=== PATIENT | male | born 1975 | race Caucasian/White ===

== ENCOUNTER 2016-09-02 11:01 | Observation (INO) | payer SELFPAY ==
[~2016-09-02] VITALS: Ht 175.3 cm; Wt 97.0 kg
[2016-09-02] VITALS (12 sets, daily range): BP systolic 119–150; BP diastolic 78–101; PULSE 84–105; RESP 18–22; TEMP 97.8; O2SAT 92–100
[2016-09-02] MEDS ORDERED: SODIUM CHLORID 0.9% 500 ML INJ 500 ML IV ONE ×2 (11:15→14:15)
[2016-09-02] MEDS ORDERED: ASPIRIN 81 MG CHEW TAB PO ONE (11:15)
[2016-09-02] MEDS ORDERED: SODIUM CHLORIDE 0.9% FLUSH 5 ML FLUSH IVF PRN ×2 (11:15→14:00)
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
[2016-09-02] MEDS: NITROGLYCERIN 0.4 MG SL 25 TABS/BTL SL SCH ×2 (11:24→11:34)
[2016-09-02 11:49] LABS: AUTOMATED NEUTROPHIL # 2.3 TH/MM3 (1.8-7.7); EOSINOPHIL # 0.1 TH/MM3 (0-0.4); EOSINOPHIL % 1.7 % (0.0-4.0); HEMATOCRIT 43.7 % (39.0-51.0); HEMO FLAGS DIFF FINAL; LYMPH % 33.6 % (9.0-44.0); LYMPHOCYTE # 1.5 TH/MM3 (1.0-4.8); MEAN CELL VOLUME 90.3 FL (80.0-100.0); MEAN CORPUSCULAR HEMOGLOBIN 31.3 PG (27.0-34.0); MEAN CORPUSCULAR HGB CONC 34.7 % (32.0-36.0); NEUT % 51.7 % (16.0-70.0); PLATELET COUNT 202 TH/MM3 (150-450); RED BLOOD COUNT 4.84 MIL/MM3 (4.50-5.90); RED CELL DISTRIBUTION WIDTH 13.1 % (11.6-17.2); WHITE BLOOD COUNT 4.4 TH/MM3 (4.0-11.0)
--- NOTE | 2016-09-02 11:50 | RADRPT ---
EXAM DATE/TIME: 09/02/2016 11:37 [facility] COMPARISON: No previous studies available for comparison. INDICATIONS : Chest pain MEDICAL HISTORY : Hypertension. SURGICAL HISTORY : None. ENCOUNTER: Initial ACUITY: 1 day PAIN SCORE: 6/10 LOCATION: chest FINDINGS: Portable AP view of the chest demonstrates a normal-sized cardiac silhouette. No effusion, consolidat ion, or pneumothorax is visualized. The bones and soft tissues demonstrate no acute abnormality. CONCLUSION: No acute cardiopulmonary abnormality is identified. Tristan Mcneill MD on September 02, 2016 at 11:48 Board Certified Radiologist. This report was verified electronically.
[2016-09-02 12:02] LABS: PROTHROMBIN TIME - PATIENT 10.7 SEC (9.8-11.6)
[2016-09-02 12:11] LABS: ALT (GPT) 42 U/L (12-78); ANION GAP 12 MEQ/L (5-15); AST (GOT) 44 U/L (15-37); BICARBONATE 24.9 MEQ/L (21.0-32.0); BLOOD UREA NITROGEN 7 MG/DL (7-18); CHLORIDE 106 MEQ/L (98-107); GLOMERULAR FILTRATION RATE 98 ML/MIN (>89); MAGNESIUM 2.3 MG/DL (1.5-2.5); POTASSIUM 3.8 MEQ/L (3.5-5.1); SODIUM (NA) 143 MEQ/L (136-145)
[2016-09-02 12:15] LABS: ALKALINE PHOSPHATASE 82 U/L (45-117); CREATINE KINASE 385 U/L (39-308); TOTAL BILIRUBIN ADULT 0.7 MG/DL (0.2-1.0)
[2016-09-02 12:28] LABS: CKMB 2.8 NG/ML (0.5-3.6)
[2016-09-02] MEDS ORDERED: SODIUM CHLOR 0.9% 1000 ML INJ 1,000 ML IV ONE (12:45)
[2016-09-02] MEDS ORDERED: ALPRAZolam 0.25 MG TAB PO PRN (14:00)
[2016-09-02] MEDS ORDERED: ONDANSETRON HCL 4 MG/2 ML VIAL IV PRN (14:00)
[2016-09-02] MEDS ORDERED: PANTOPRAZOLE SOD 40 MG DELAYED RELEASE TAB PO SCH (14:00)
[2016-09-02] MEDS ORDERED: ACETAMINOPHEN 500 MG CPLT PO PRN (14:00)
[2016-09-02] MEDS ORDERED: ALUMINUM/MAGNESIUM/SIMETH 30 ML CUP PO ONE (14:15)
[2016-09-02] MEDS ORDERED: cloNIDine HCL 0.1 MG TAB PO PRN (14:15)
[2016-09-02] MEDS ORDERED: LIDOCAINE VISCOUS 2% SOLN 15 ML UDC PO ONE (14:15)
[2016-09-02] MEDS ORDERED: ATROPINE/SCOPOLAM/HYOSCYAM/PB ELIXIR 10 ML CUP PO ONE (14:15)
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
[2016-09-02 14:29] LABS: BLOOD, URINE NEG (NEG); COMMENT (UR) CULT NOT INDICATED; CULTURE IF INDICATED CULT NOT INDICATED; GLUCOSE,URINE NEG (NEG); KETONE, URINE NEG (NEG); MUCUS URINE FEW /lpf (OCC); NITRITE,URINE NEG (NEG); URINE COLOR COLORLESS (YELLW/STRAW)
[2016-09-02 14:33] LABS: AMPHETAMINE, URINE NEG (NEG); BARBITURATES, URINE NEG (NEG); COCAINE, URINE NEG (NEG)
[2016-09-02 14:47] LABS: CREATINE KINASE 249 U/L (39-308)
[2016-09-02 14:59] LABS: CKMB 1.8 NG/ML (0.5-3.6)
--- NOTE | 2016-09-02 16:28 | HHI.DCPOC ---
Discharge Care Plan Diagnosis: (1) Chest pain, atypical (2) Gastritis Goals to Promote Your Health * To prevent worsening of your condition and complications * To maintain your health at the optimal level Directions to Meet Your Goals Take your medications as prescribed Follow your dietary instruction Follow activity as directed Keep your appointments as scheduled Take your immunizations and boosters as scheduled If your symptoms worsen call your PCP, if no PCP go to Urgent Care Center or Emergency Room Smoking is Dangerous to Your Health. Avoid second hand smoke Call the 24-hour hour crisis hotline for domestic abuse at Billy Anderson Sep 02, 2016 16:28
--- NOTE | 2016-09-02 16:50 | TR ---
Date Performed: 09/02/2016 Time Performed: 15:46:41 DOCTOR: Jono Wynne DRUG LIST: CLINICAL HISTORY: REASON FOR TEST: Chest pain REASON FOR ENDING: OBSERVATION: CONCLUSION: ALEX PROTOCOL. NO CP. TEST STOPPED AFTER EXCEEDING GOAL HR SECONDARY TO SOB AND LEG FATIGUE. HYPERTENSIVE RESPONSE TO EXERCISE. FAIR EXERCISE TOLERANCE. ECG TRACINGS ARE NEGATIVE FOR I SCHEMIC CHANGES. RECOVERY WAS QUICK AND UNEVENTFUL WITH RESOLUTION OF SHORTNESS OF BREATH, BLOOD PRES SURE RETURNED TO NORMAL. Maximum MM=850 % Max HR Achieved=87.0% Maximum FY=921/86 Total Exercise Time =7:59 COMMENTS: CONCLUSION: Normal exercise treadmill. No evidence of ischemia.
--- NOTE | 2016-09-02 17:18 | EKG ---
Date Performed: 09/02/2016 Time Performed: 11:08:26 PTAGE: 40 years EKG: Sinus rhythm NORMAL ECG NO PREVIOUS TRACING DOCTOR: Jono Wynne Interpretating Date/Time 09/02/2016 17:16:48
--- NOTE | 2016-09-02 17:24 | EKG ---
Date Performed: 09/02/2016 Time Performed: 14:05:12 PTAGE: 40 years EKG: Sinus rhythm LOW QRS VOLTAGE IN PRECORDIAL LEADS BORDERLINE ECG NO PREVIOUS TRACING DOCTOR: Jono Wynne Interpretating Date/Time 09/02/2016 17:23:54
[2016-09-02 18:33] LABS: CREATINE KINASE 278 U/L (39-308)
[2016-09-02] MEDS ORDERED: SODIUM CHLORIDE 0.9% FLUSH 5 ML FLUSH IVF SCH (21:00)
[2016-09-03] MEDS ORDERED: ASPIRIN 325 MG TAB PO SCH (09:00)
--- NOTE | 2016-09-03 14:35 | EKG ---
Date Performed: 09/02/2016 Time Performed: 17:25:07 PTAGE: 40 years EKG: Sinus rhythm WITH SINUS ARRHYTHMIA NONSPECIFIC T-WAVE ABNORMALITY BORDERLINE ECG PREVIOUS TRACING : 09/02/2016 14.05 Since previous tracing, no significant change noted DOCTOR: Walker Livingston Interpretating Date/Time 09/03/2016 14:33:20
== END 2016-09-02 19:30 | disposition home or self-care (01) ==
LOC: NEPE 11:01 → NEDA 12:40 → NEPHCDU 15:58
PROVIDERS: ADMIT Family Medicine; ATTEND Family Medicine
DX: R07.89 Other chest pain (principal); K29.70 Gastritis, unspecified, without bleeding; R06.02 Shortness of breath; F43.10 Post-traumatic stress disorder, unspecified; F41.9 Anxiety disorder, unspecified; Z87.891 Personal history of nicotine dependence
CPT/HCPCS: 71010; 80053; 80307; 81001; 82550; 82552; 83690; 83735; 84484; 85025; 85610; 85730; 93005; 93017; 96360; 99285; G0378; J7030; J7040; 80320